=== PATIENT | female | born 1950 | race Caucasian/White ===

== ENCOUNTER → 2016-11-22 | Outpatient (CLI) | payer MEDICARE, BC ==
[2016-11-22 08:25] LABS: CHLORIDE,CL 107 mmol/L (98-110); SODIUM,NA 140 mmol/L (136-146)
--- NOTE | 2016-11-22 14:09 | CR ---
EXAMINATION: Two-view chest (PA and Lateral views). HISTORY: Dyspnea. FINDINGS: The trachea is midline. The cardiomediastinal silhouette is within normal limits. No pulmonary infil trates, effusions or pneumothorax. Osseous structures appear unremarkable. IMPRESSION: No acute cardiopulmonary process.
== END ==
LOC: MW.CHFP 07:48
PROVIDERS: ATTEND Emergency Medicine
DX: R06.09 Other forms of dyspnea (principal); I10 Essential (primary) hypertension; E78.5 Hyperlipidemia, unspecified; R73.9 Hyperglycemia, unspecified; K21.9 Gastro-esophageal reflux disease without esophagitis; Z01.419 Encounter for gynecological examination (general) (routine) without abnormal findings
CPT/HCPCS: 36415; 71020; 71020-26; 80053; 80061; 83036; 84443; 93005; 99215; G0145

== ENCOUNTER → 2016-12-25 | Outpatient (CLI) | payer MEDICARE, BC ==
--- NOTE | 2016-12-25 19:56 | MY ---
EXAMINATION: Bilateral digital mammography utilizing CAD. HISTORY: Screening exam. Comparison is made to previous studies dated 12/16/2015, 11/25/2014. FINDINGS: Bilateral heterogeneously dense breast tissue. No suspicious calcifications, masses or architectural distortions. No pathologic appearing lymph nodes, no abnormal skin thickening or nip ple inversion. CAD highlighted regions appear normal at this time. IMPRESSION: BI-RADS category I - negative mammogram. Continued screening according to ACR-ACS gu idelines suggested. THE FALSE-NEGATIVE RATE OF MAMMOGRAM IS APPROXIMATELY 10%. MANAGEMENT OF A PALPABLE ABNORMALITY MUST BE BASED UPON CLINICAL GROUNDS. SENSITIVITY FOR DETECTION OF ABNORMALITIES IN DENSE BREASTS IS LOW. NOTE: A letter will be sent to the patient regarding findings. [facility] -- EZEQUIEL Raymundo [phone] - FAX [phone]
== END ==
LOC: MW.MAM 14:01
PROVIDERS: ATTEND Emergency Medicine
DX: Z00.00 Encounter for general adult medical examination without abnormal findings (principal); Z12.31 Encounter for screening mammogram for malignant neoplasm of breast
CPT/HCPCS: G0202; G0202-26

== ENCOUNTER → 2017-01-10 | Outpatient (CLI) | payer MEDICARE, BC | LOC: MW.CHIM 08:00 | PROVIDERS: ATTEND Internal Medicine | DX: R06.09 Other forms of dyspnea (principal); R73.9 Hyperglycemia, unspecified; I10 Essential (primary) hypertension; E78.5 Hyperlipidemia, unspecified | CPT/HCPCS: 99204 ==

== ENCOUNTER → 2017-02-02 | Outpatient (CLI) | payer MEDICARE, BC ==
--- NOTE | 2017-02-02 11:09 | NM ---
EXAMINATION: Nuclear medicine myocardial perfusion study with exercise stress test. HISTORY: Mitral valve insufficiency. PROCEDURE: Patient exercised according to Harjit protocol for 4 minutes and 22 seconds and achieved maximal hear t rate of 157 beats per minute. Adequate exercise. Following intravenous administration of 26.2 mCi of technetium 99m sestamibi, stress SPECT images i ncluding gating imaging was performed. FINDINGS: Stress myocardial SPECT images demonstrates uniform tracer uptake throughout the left ventricular my ocardium. Review of gated images demonstrates normal wall motion, contractility and wall thickening. The left ventricular ejection fraction is 74 %. The left ventricular chamber size is normal. IMPRESSION: 1. No evidence of myocardial ischemia. 2. Normal ventricular chamber size and function with ejection fraction of 74%.
--- NOTE | 2017-02-05 09:01 | PCM.PRNOTE ---
- Free Text/Narrative Note: Date of service 02/02/2017 Exercise MIBI Indication CP Sestamibi Tc99 25 MCi was given at the peak HR Patient was brought to the stress test lab in postabsorptive state verbal and paper consent was obtained from patient Vital signs at resting state blood pressure of 104/60 with a heart rate of 81 EKG shows sinus rhythm no ST changes no Q wave Maximal heart rate of 152 and target heart rate is 129 Patient reached the target heart rate, completed stage II Harjit protocol Peak blood pressure is 180/60 Total exercise time of 4.[address] changes V3-V6 with a peak heart rate no arrhythmia METS 7 The test terminated due to symptoms of shortness of breath, no chest pain Impression Normal hemodynamics, normal chronotropic, fair exercise capacity, negative for ischemia on EKG Plan Nuclear portion pending
== END ==
LOC: MW.NM 07:03
PROVIDERS: ATTEND Internal Medicine
DX: I34.0 Nonrheumatic mitral (valve) insufficiency (principal)
CPT/HCPCS: 78451; 93017; A9500

== ENCOUNTER → 2017-02-06 | Outpatient (CLI) | payer MEDICARE, BC ==
--- NOTE | 2017-02-08 14:16 | ECHO ---
EXAM DATE: 02/06/17 The echocardiogram report can be seen in this patient's EMR (Electronic Medical Record) in the Reports section. SIMEON
== END ==
LOC: MW.US 13:02
PROVIDERS: ATTEND Internal Medicine
DX: I34.0 Nonrheumatic mitral (valve) insufficiency (principal)
CPT/HCPCS: 93306

== ENCOUNTER → 2017-02-14 | Outpatient (CLI) | payer MEDICARE, BC | LOC: MW.CHIM 08:00 | PROVIDERS: ATTEND Internal Medicine | DX: R06.02 Shortness of breath (principal); I10 Essential (primary) hypertension; E78.4 Other hyperlipidemia; J45.909 Unspecified asthma, uncomplicated | CPT/HCPCS: G0463 ==

== ENCOUNTER 2020-10-10 14:54 | Emergency (ER) | payer MEDICARE, BC ==
[2020-10-10] MEDS ORDERED: Silver Sulfadiazine 1% Crm 50 GM Tube TOP ONE ×2 (15:06→15:35)
[2020-10-10] MEDS ORDERED: Bacitracin Oint 28.35 GM Tube ONE (15:15)
[2020-10-10] MEDS ORDERED: Silver Sulfadiazine 1% Crm 400 GM Jar ONE (15:15)
[2020-10-10] MEDS ORDERED: Bacitracin Oint 28.35 GM Tube TOP STA (15:16)
[2020-10-10] MEDS ORDERED: Acetaminophen/HYDROcodone 325-5 MG Tab PO ONE (15:17)
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
[2020-10-10] MEDS ORDERED: Bacitracin Oint 28.35 GM Tube TOP SCH (22:00)
== END 2020-10-10 16:00 | disposition home or self-care (01) ==
LOC: MW.ED 14:54
DX: T22.211A Burn of second degree of right forearm, initial encounter (principal); T20.16XA Burn of first degree of forehead and cheek, initial encounter; T21.11XA Burn of first degree of chest wall, initial encounter; T23.102A Burn of first degree of left hand, unspecified site, initial encounter; T23.17 Burn of first degree of wrist; S01.81XA Laceration without foreign body of other part of head, initial encounter; X12.XXXA Contact with other hot fluids, initial encounter
CPT/HCPCS: 16020; 99283; A9270; 99284

== ENCOUNTER 2020-10-12 13:48 | Emergency (ER) | payer MEDICARE, BC ==
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
[2020-10-12 14:28] LABS: CARBON DIOXIDE,CO2 27.5 mmol/L (21.0-32.0); POTASSIUM,K 3.8 mmol/L (3.5-5.1)
--- NOTE | 2020-10-12 15:00 | CT ---
Indication: Fall Technique: Volumetric multidetector CT images of the head were obtained without the administration of low osmolar intravenous contrast. Comparison: None available Findings: There is no intra-axial or extra-axial fluid collection. There is no mass effect or midline shift. The ventricles and sulci are normal in size and position for age. There are mildly low lying cerebellar tonsils which can be seen in the setting of Chiari malformation. The brain parenchyma is grossly preserved in attenuation and javed-white differentiation. There is moderate periorbital, preseptal soft tissue swelling. Otherwise the orbits and their contents are within normal limits. The bony calvarium is grossly intact. There is minimal mucosal thickening seen within the paranasal sinuses. The mastoid air cells are well aerated. Impression: Moderate periorbital, preseptal soft tissue swelling without acute intracranial abnormality. Please note that all CT scans at this facility use dose modulation, iterative reconstruction, and/or weight-based dosing when appropriate to reduce radiation dose to as low as reasonably achievable. Dictated by Guillaume Pederson MD @ Oct 12 2020 2:53PM Signed by Dr. Guillaume Pederson @ Oct 12 2020 2:59PM
--- NOTE | 2020-10-12 15:11 | CT ---
Indication: Fall Technique: Volumetric multidetector CT images of the facial bones were obtained without the administration of IV contrast. Comparison: None available. Findings: The partially visualized brain is normal in attenuation without evidence of midline shift or fluid collection. The paranasal sinuses are clear without evidence of air-fluid level. There is moderate periorbital, preseptal soft tissue swelling. Otherwise, the bony orbits are grossly intact. The zygomatic arches are grossly intact. The bilateral maxillae are intact. The pterygoid plates are grossly intact. The nasal bones and anterior nasal spine are intact without displaced fracture. The mandible is grossly well located. The partially visualized cervical spine is grossly intact without displaced fracture. Impression: Moderate periorbital, preseptal soft tissue swelling without evidence of underlying osseous orbital injury. No evidence of definite, displaced fracture. Please note that all CT scans at this facility use dose modulation, iterative reconstruction, and/or weight-based dosing when appropriate to reduce radiation dose to as low as reasonably achievable. Dictated by Guillaume Pederson MD @ Oct 12 2020 2:53PM Signed by Dr. Guillaume Pederson @ Oct 12 2020 3:08PM
--- NOTE | 2020-10-12 15:38 | CT ---
Indication: Tripped over stool Technique: Volumetric multidetector CT images of the cervical spine were obtained without the administration of IV contrast. Comparison: None available. Findings: The cervical vertebral body heights are grossly maintained. There is mild reversal of the normal cervical lordosis with trace anterolisthesis of C4 on C5. There is mild multilevel degenerative disc disease with disc height loss and marginal osteophyte formation. The facets are well imbricated. The paraspinous soft tissues are grossly within normal limits. Impression: Mild multilevel degenerative changes of the cervical spine without acute osseous abnormality. Please note that all CT scans at this facility use dose modulation, iterative reconstruction, and/or weight-based dosing when appropriate to reduce radiation dose to as low as reasonably achievable. Dictated by Guillaume Pederson MD @ Oct 12 2020 2:53PM Signed by Dr. Guillaume Pederson @ Oct 12 2020 3:35PM
== END 2020-10-12 16:20 | disposition home or self-care (01) ==
LOC: MW.ED 13:48
DX: S09.90XA Unspecified injury of head, initial encounter (principal); T23.002A Burn of unspecified degree of left hand, unspecified site, initial encounter; T22.00XA Burn of unspecified degree of shoulder and upper limb, except wrist and hand, unspecified site, initial encounter; S00.81XA Abrasion of other part of head, initial encounter; Z79.82 Long term (current) use of aspirin; Z79.899 Other long term (current) drug therapy; X12.XXXA Contact with other hot fluids, initial encounter
CPT/HCPCS: 36415; 70450; 70450-26; 70486; 70486-26; 72125; 72125-26; 80048; 85025; 99284-25

== ENCOUNTER 2020-11-19 11:52 | Emergency (ER) | payer MEDICARE, BC ==
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
== END 2020-11-19 12:52 | disposition home or self-care (01) ==
LOC: MW.ED 11:52
DX: T86.828 Other complications of skin graft (allograft) (autograft) (principal); I10 Essential (primary) hypertension; E78.00 Pure hypercholesterolemia, unspecified; Z88.0 Allergy status to penicillin; Z79.82 Long term (current) use of aspirin; Z79.899 Other long term (current) drug therapy
CPT/HCPCS: 99282; 99283

== ENCOUNTER 2025-01-09 07:25 | Day surgery (SDC) | payer MEDICARE ==
[~2025-01-09 07:25] MED LIST: Lactated Ringers 1,000 ML IV SCH
[2025-01-09] MEDS: Lactated Ringers 1,000 ML IV SCH (07:50)
[2025-01-09] MEDS ORDERED: propofoL 500 MG/50 ML 50 ML ONE (08:00)
[2025-01-09] MEDS ORDERED: Lidocaine 2% 5 ML SDV ONE (08:03)
[2025-01-09] MEDS ORDERED: Propofol 200 MG/20 ML SDV ONE (09:08)
[2025-01-09] MEDS ORDERED: Lactated Ringers 1,000 ML IV SCH (09:45)
== END 2025-01-09 10:35 | disposition home or self-care (01) ==
LOC: MW.SDS 07:25
PROVIDERS: ATTEND Surgery
DX: Z12.11 Encounter for screening for malignant neoplasm of colon (principal); K21.00 Gastro-esophageal reflux disease with esophagitis, without bleeding; K29.50 Unspecified chronic gastritis without bleeding; K44.9 Diaphragmatic hernia without obstruction or gangrene; I12.9 Hypertensive chronic kidney disease with stage 1 through stage 4 chronic kidney disease, or unspecified chronic kidney disease; N18.9 Chronic kidney disease, unspecified; E78.00 Pure hypercholesterolemia, unspecified; Z79.899 Other long term (current) drug therapy; Z88.0 Allergy status to penicillin
CPT/HCPCS: 43239; 45378; J2003; J2704; J7120; 00813; 88305; 88342; 99100